=== PATIENT | female | born 1970 | race Caucasian/White ===

== ENCOUNTER 2016-11-22 21:24 | Emergency (ER) | payer OTHER ==
[2016-11-22 21:54] VITALS: BMI 20.6
[2016-11-22 21:58] VITALS: RESP 16; TEMP 98.7; O2SAT 99
--- NOTE | 2016-11-22 22:23 | ED PDOC ---
Arrival/HPI - General Chief Complaint: Headache Time Seen by Provider: 11/22/16 21:58 Historian: Patient - History of Present Illness Narrative History of Present Illness (Text): 11/22/16 22:17 46yo female present in ED for complaint of left sided occipital headache x 2days. Reports nausea. states she have history of same headache and was seen by a Neurologist. She did brain MRI last month September and states she was told that everything is fine. States she came to ED for a second opinion. She did not take any medication for her headache. Denies trauma, focal weakness, vomiting, aphasia, visual changes, fever, neck pain, any other complaint. Past Medical History - Provider Review Nursing Documentation Reviewed: Yes - Past History Past History: No Previous - Infectious Disease Hx of Infectious Diseases: None - Tetanus Immunization Tetanus Immunization: Unknown - Reproductive Menopause: Yes - Past Medical History Past Medical History: No Previous - Cardiac Hx Hypertension: Yes Other/Comment: elevated lipids - Neurological Hx Dizziness: Yes Hx Headaches: Yes - Endocrine/Metabolic Hx Hypothyroidism: Yes - Musculoskeletal/Rheumatological Hx Falls: No (passed out at home) - Gastrointestinal Hx Gastrointestinal Disorders: Yes (PYELONEPHRITIS) - Genitourinary/Gynecological Hx Genitourinary Disorders: Yes Hx Hematuria: Yes (MICROSCOPIC) Hx Reproductive Disorders: Yes Hx Urinary Tract Infection: Yes - Psychiatric Hx Psychophysiologic Disorder: Yes Hx Substance Use: No - Surgical History Hx Section: Yes Hx Thyroidectomy: Yes Other/Comment: laparoscopy, - Anesthesia Hx Anesthesia: Yes Hx Anesthesia Reactions: No Hx Malignant Hyperthermia: No - Suicidal Assessment Feels Threatened In Home Enviroment: No Family/Social History - Physician Review Nursing Documentation Reviewed: Yes Family/Social History: Unknown Family HX Smoking Status: Never Smoked Hx Alcohol Use: No Hx Substance Use: No Hx Substance Use Treatment: No Allergies/Home Meds Allergies/Adverse Reactions: Allergies No Known Allergies Allergy (Verified 11/22/16 21:53) Home Medications: Home Meds Medication Instructions Recorded Confirmed Naproxen [Naprosyn] 500 mg PO PRN PRN 11/22/16 11/22/16 Review of Systems - Physician Review All systems were reviewed & negative as marked: Yes - Review of Systems Constitutional: Normal Eyes: Normal ENT: Normal Respiratory: Normal Cardiovascular: Normal Gastrointestinal: Normal Genitourinary Female: Normal Musculoskeletal: Normal Skin: Normal Neurological: Headache Endocrine: Normal Hemo/Lymphatic: Normal Psychiatric: Normal Physical Exam Vital Signs Reviewed: Yes Vital Signs Temp Pulse Resp BP Pulse Ox 11/22/16 21:57 98.7 F 69 16 109/76 99 Temperature: Afebrile Blood Pressure: Normal Pulse: Regular Respiratory Rate: Normal Appearance: Positive for: Well-Appearing, Non-Toxic, Comfortable Pain Distress: None Mental Status: Positive for: Alert and Oriented X 3 - Systems Exam Head: Present: Atraumatic, Normocephalic Pupils: Present: PERRL Extroacular Muscles: Present: EOMI Conjunctiva: Present: Normal Mouth: Present: Moist Mucous Membranes Neck: Present: Normal Range of Motion Respiratory/Chest: Present: Clear to Auscultation, Good Air Exchange. No: Respiratory Distress, Accessory Muscle Use Cardiovascular: Present: Regular Rate and Rhythm, Normal S1, S2. No: Murmurs Abdomen: Present: Normal Bowel Sounds. No: Tenderness, Distention, Peritoneal Signs Back: Present: Normal Inspection Upper Extremity: Present: Normal Inspection. No: Cyanosis, Edema Lower Extremity: Present: Normal Inspection. No: Edema Neurological: Present: GCS=15, CN II-XII Intact, Speech Normal, Motor Func Grossly Intact, Normal Sensory Function, Normal Cerebellar Funct, Memory Normal , Normal 2Pt Descrimination, Other (No focal neurological deficit) Skin: Present: Warm, Dry, Normal Color. No: Rashes Psychiatric: Present: Alert, Oriented x 3, Normal Insight, Normal Concentration Medical Decision Making ED Course and Treatment: 11/23/16 00:48 Pt remained neurological intact in ED. Her MRI from last month was reviewed and it was negative. She states he headache improved in ED with medication. She was DC home with a rx of Fioricet. Referred to her PMD. TRT ED for any new or worsening symptoms. - Medication Orders Current Medication Orders: Discontinued Medications Ketorolac Tromethamine (Toradol) 60 mg IM STAT STA Stop: 11/22/16 22:09 Last Admin: 11/22/16 23:12 Dose: 60 mg Metoclopramide HCl (Reglan) 10 mg PO STAT STA Stop: 11/22/16 22:09 Last Admin: 11/22/16 23:12 Dose: 10 mg Disposition/Present on Arrival - Present on Arrival Any Indicators Present on Arrival: No History of DVT/PE: No History of Uncontrolled Diabetes: No Urinary Catheter: No History of Decub. Ulcer: No History Surgical Site Infection Following: None - Disposition Have Diagnosis and Disposition been Completed?: Yes Diagnosis: Headache Disposition: HOME/ ROUTINE Disposition Time: 23:40 Patient Plan: Discharge Patient Problems: Current Active Problems Problem Status Onset Headache Acute Condition: STABLE Discharge Instructions (ExitCare): Acute Headache (ED) Additional Instructions: Follow up with your Doctor Return to ED for any new or worsening symptoms Prescriptions: Acetaminophen/Butalbital/Caf [Fioricet] 1 tab PO Q6 #10 tab Referrals: [facility] [place] [Outside] - Follow up with primary
[2016-11-23 01:23] VITALS: BP 106/71; PULSE 66
== END 2016-11-22 23:46 | disposition home or self-care (01) ==
LOC: ED 21:24
DX: R51 Headache (principal); I10 Essential (primary) hypertension
CPT/HCPCS: 96372; 99285; J1885

== ENCOUNTER 2017-02-16 11:29 | Emergency (ER) | payer OTHER ==
[2017-02-16 12:13] VITALS: BP 116/71; PULSE 65; RESP 17; TEMP 98.2; O2SAT 99; BMI 21.0
[2017-02-16] MEDS ORDERED: Naproxen 550 mg Tab PO STA (12:14)
--- NOTE | 2017-02-16 12:54 | RAD ---
PROCEDURE: Radiographs of the right elbow. HISTORY: pain COMPARISON: No prior. FINDINGS: BONES: Normal. No fracture. JOINTS: Normal. No osteoarthritis. SOFT TISSUES: Normal. JOINT EFFUSION: None. OTHER FINDINGS: None. IMPRESSION: Unremarkable radiographs of the right elbow.
--- NOTE | 2017-02-16 12:58 | ED PDOC ---
Arrival/HPI - General Chief Complaint: Trauma Time Seen by Provider: 02/16/17 11:42 Historian: Patient - History of Present Illness Narrative History of Present Illness (Text): 02/16/17 13:22 46 yo R handed F c/o atraumatic R elbow pain x several weeks. States that she has seen her pmd and her pain management doctor regarding her symptoms, she has been taking NSAIDs with mild relief, however the pain continues, states that she was also given an injection at the joint by her pain management doctor with no improvement. States that she works 2 different jobs and is doing a lot of repetitive movements at both jobs. Denies any injury, fever, chills, numbness, decrease in ROM, other joint pain. Pt has no other complaints. PMD [place] Past Medical History - Provider Review Nursing Documentation Reviewed: Yes - Past History Past History: No Previous - Infectious Disease Hx of Infectious Diseases: None - Tetanus Immunization Tetanus Immunization: Unknown - Past Medical History Past Medical History: No Previous - Cardiac Hx Hypertension: Yes Other/Comment: elevated lipids - Neurological Hx Dizziness: Yes Hx Headaches: Yes - Endocrine/Metabolic Hx Hypothyroidism: Yes - Musculoskeletal/Rheumatological Hx Falls: No (passed out at home) - Gastrointestinal Hx Gastrointestinal Disorders: Yes (PYELONEPHRITIS) - Genitourinary/Gynecological Hx Genitourinary Disorders: Yes Hx Hematuria: Yes (MICROSCOPIC) Hx Reproductive Disorders: Yes Hx Urinary Tract Infection: Yes - Psychiatric Hx Psychophysiologic Disorder: Yes Hx Substance Use: No - Surgical History Hx Section: Yes Hx Thyroidectomy: Yes Other/Comment: laparoscopy, - Anesthesia Hx Anesthesia: Yes Hx Anesthesia Reactions: No Hx Malignant Hyperthermia: No - Suicidal Assessment Feels Threatened In Home Enviroment: No Family/Social History - Physician Review Nursing Documentation Reviewed: Yes Family/Social History: No Known Family HX Smoking Status: Never Smoked Hx Alcohol Use: No Hx Substance Use: No Hx Substance Use Treatment: No Allergies/Home Meds Allergies/Adverse Reactions: Allergies No Known Allergies Allergy (Verified 11/22/16 21:53) Home Medications: Home Meds Medication Instructions Recorded Confirmed Naproxen [Naprosyn] 500 mg PO PRN PRN 11/22/16 02/16/17 Ibuprofen [Motrin] 600 mg PO PRN PRN 02/16/17 02/16/17 Simvastatin [Simvastatin] 10 mg PO DAILY 02/16/17 02/16/17 Review of Systems - Review of Systems Constitutional: Normal. absent: Fatigue, Weight Change, Fevers Musculoskeletal: Normal, Arthralgias. absent: Back Pain, Neck Pain Skin: Normal. absent: Rash, Pruritis, Skin Lesions Physical Exam Vital Signs Reviewed: Yes Vital Signs Temp Pulse Resp BP Pulse Ox 02/16/17 12:04 98.2 F 65 17 116/71 99 Temperature: Afebrile Blood Pressure: Normal Pulse: Regular Respiratory Rate: Normal Appearance: Positive for: Well-Appearing, Non-Toxic, Comfortable Pain Distress: Mild Mental Status: Positive for: Alert and Oriented X 3 - Systems Exam Upper Extremity: Present: Normal Inspection, Normal ROM, NORMAL PULSES, Tenderness (TTP to the lateral epicondyle of the R elbow), Neurovascularly Intact, Capillary Refill < 2s, Norm 2-Pt Discrimination. No: Cyanosis, Edema, Swelling, Erythema, Temperature Abnormalties, Deformity Neurological: Present: GCS=15, CN II-XII Intact, Motor Func Grossly Intact, Normal Sensory Function Skin: Present: Warm, Dry, Normal Color. No: Rashes Medical Decision Making ED Course and Treatment: 02/16/17 12:56 46 yo F c/o R elbow pain x several weeks. Based on history and exam to consider tendonitis, sprain, likely tennis elbow. Plan : - XR R elbow - Naprosyn PO XR R elbow : no fracture, no deformity, as read by PA. XR results d/w the pt in great detail. Pt advised to likely diagnosis of tennis elbow and advised to rest her elbow, given work excuse for the next 2 days. Pt advised to continue taking NSAIDs for pain. Advised to f/u with her pmd and with ortho referral provided for further evaluation. Otherwise to return to the ER at any time for any new or worsening symptoms. - RAD Interpretation Radiology Orders: 02/16/17 12:14 ELBOW RIGHT 3 VIEWS ROUTINE [RAD] Stat - Medication Orders Current Medication Orders: Discontinued Medications Naproxen (Anaprox Ds) 550 mg PO ONCE STA Stop: 02/16/17 12:15 Last Admin: 02/16/17 13:10 Dose: 550 mg - PA / [employer] / Resident Statement MD/DO has reviewed & agrees with the documentation as recorded. Disposition/Present on Arrival - Present on Arrival Any Indicators Present on Arrival: No History of DVT/PE: No History of Uncontrolled Diabetes: No Urinary Catheter: No History of Decub. Ulcer: No History Surgical Site Infection Following: None - Disposition Have Diagnosis and Disposition been Completed?: Yes Diagnosis: Tennis elbow Disposition: HOME/ ROUTINE Disposition Time: 12:30 Patient Plan: Discharge Patient Problems: Current Active Problems Problem Status Onset Tennis elbow Acute Condition: GOOD Discharge Instructions (ExitCare): Tennis Elbow (ED) Print Language: AMHARIC Additional Instructions: Follow up with pmd and with orthopedic referral provided, continue taking NSAIDs for pain. Return to the ER at any time for any new or worsening symptoms. Referrals: PCP,NO [Primary Care Provider] - Follow up with primary Dwayne Pressley MD [Staff Provider] - Follow up with primary Forms: WORK NOTE
== END 2017-02-16 13:49 | disposition home or self-care (01) ==
LOC: ED 11:29
DX: M77.11 Lateral epicondylitis, right elbow (principal)

== ENCOUNTER 2017-03-03 12:04 | Observation (INO) | payer OTHER ==
--- NOTE | 2017-03-03 12:23 | ED PDOC ---
Arrival/HPI - General Chief Complaint: Chest Pain Time Seen by Provider: 03/03/17 12:05 Historian: Patient - History of Present Illness Narrative History of Present Illness (Text): 03/03/17 12:23 A 46 year old female, whose past medical history includes hyperlipidemia, presents to emergency department complaining of worsening midsternal chest pain since this morning. Patient describes her pain as a sharp pressure sensation. She states the pain is worse on exertion and when taking deep breaths. Patient denies any fever, chills, nausea, vomiting, diarrhea, abdominal pain, shortness of breath, cough, runny nose, headache, dizziness, or any other complaints. Denies history of DVT or PE. PMD: None Time/Duration: Other (this morning) Symptom Course: Unchanged Quality: Other (Sharp) Context: Home Past Medical History - Provider Review Nursing Documentation Reviewed: Yes - Past History Past History: No Previous - Infectious Disease Hx of Infectious Diseases: None - Tetanus Immunization Tetanus Immunization: Unknown - Past Medical History Past Medical History: No Previous - Cardiac Hx Hypertension: Yes Other/Comment: elevated lipids - Neurological Hx Dizziness: Yes Hx Headaches: Yes - Endocrine/Metabolic Hx Hypothyroidism: Yes - Musculoskeletal/Rheumatological Hx Falls: No (passed out at home) - Gastrointestinal Hx Gastrointestinal Disorders: Yes (PYELONEPHRITIS) - Genitourinary/Gynecological Hx Genitourinary Disorders: Yes Hx Hematuria: Yes (MICROSCOPIC) Hx Reproductive Disorders: Yes Hx Urinary Tract Infection: Yes - Psychiatric Hx Psychophysiologic Disorder: Yes Hx Substance Use: No - Surgical History Hx Section: Yes Hx Thyroidectomy: Yes Other/Comment: laparoscopy,. Ovarian Cyst removal,. Tummy Tuck. Breast lift. - Anesthesia Hx Anesthesia: Yes Hx Anesthesia Reactions: No Hx Malignant Hyperthermia: No - Suicidal Assessment Feels Threatened In Home Enviroment: No Family/Social History - Physician Review Nursing Documentation Reviewed: Yes Family/Social History: Hypertension Smoking Status: Never Smoked Hx Alcohol Use: No Hx Substance Use: No Hx Substance Use Treatment: No Allergies/Home Meds Allergies/Adverse Reactions: Allergies No Known Allergies Allergy (Verified 03/03/17 12:11) Home Medications: Home Meds Medication Instructions Recorded Confirmed Simvastatin [Simvastatin] 10 mg PO DAILY 02/16/17 03/03/17 Review of Systems - Physician Review All systems were reviewed & negative as marked: Yes - Review of Systems Constitutional: absent: Fevers, Night Sweats ENT: absent: Rhinorrhea Respiratory: absent: SOB, Cough Cardiovascular: Chest Pain Gastrointestinal: absent: Abdominal Pain, Diarrhea, Nausea, Vomiting Neurological: absent: Headache, Dizziness Physical Exam Vital Signs Reviewed: Yes Vital Signs Temp Pulse Resp BP Pulse Ox 03/03/17 12:15 97.8 F 60 20 117/76 100 Temperature: Afebrile Blood Pressure: Normal Pulse: Regular Respiratory Rate: Normal Appearance: Positive for: Well-Appearing Pain Distress: None Mental Status: Positive for: Alert and Oriented X 3 - Systems Exam Head: Present: Atraumatic, Normocephalic Pupils: Present: PERRL Extroacular Muscles: Present: EOMI Conjunctiva: Present: Normal Mouth: Present: Moist Mucous Membranes Neck: Present: Normal Range of Motion Respiratory/Chest: Present: Clear to Auscultation, Good Air Exchange, Tender to Palpation (Diffuse chest wall tenderness to palpation). No: Respiratory Distress, Accessory Muscle Use Cardiovascular: Present: Regular Rate and Rhythm, Normal S1, S2. No: Murmurs Abdomen: Present: Normal Bowel Sounds. No: Tenderness, Distention, Peritoneal Signs Back: Present: Normal Inspection Upper Extremity: Present: Normal Inspection. No: Cyanosis, Edema Lower Extremity: Present: Normal Inspection. No: Edema Neurological: Present: GCS=15, CN II-XII Intact, Speech Normal Skin: Present: Warm, Dry, Normal Color. No: Rashes Psychiatric: Present: Alert, Oriented x 3, Normal Insight, Normal Concentration Medical Decision Making ED Course and Treatment: 03/03/17 12:23 Impression: 46 year old female who's present complains of chest pain located on the middle of her chest this morning. Differential Diagnosis included but are not limited to: Costochondritis vs. Pulmonary Embolism vs. PNA vs. Pneumothorax Plan: --aspirin -- Chest xray -- EKG -- Labs -- Reassess and disposition Progress Notes: EKG shows NSR at [address]-segment elevations, normal intervals. Interpreted by me. Report Date : 03/03/2017 14:02:47 Procedure: Chest X-ray Dictator : Umair Rosales MD IMPRESSION: No active disease. 03/03/17 14:33 Trop x 1 negative. D-dimer WNL. On re-evaluation, patient complaining of persistent chest pain. Due to risk factors of hyperlipidemia and persistent pain will transfer to telemetry observation. Case discussed with Dr. Alnoso, covering for Dr. Thrasher, who requests to admit patient to the hospitalist's service. Hospitalist paged. Awaiting call back. 03/03/17 15:[address] Dewitt who accepts patient to her service. - Lab Interpretations Lab Results: 03/03/17 12:45 03/03/17 12:45 Lab Results 03/03/17 12:45: Sodium 140, Potassium 3.7, Chloride 101, Carbon Dioxide 27, Anion Gap 16, BUN 13, Creatinine 0.6, Est GFR ( Amer) > 60, Est GFR (Non- Af Amer) > 60, Random Glucose 82, Calcium 9.0, Total Bilirubin 0.3, AST 27, ALT 29, Alkaline Phosphatase 77, Total Creatine Kinase 121, Troponin I < 0.01 D, Total Protein 7.7, Albumin 4.4, Globulin 3.3, Albumin/Globulin Ratio 1.3 03/03/17 12:45: D-Dimer, Quantitative 0.19 03/03/17 12:45: WBC 5.5, RBC 4.06, Hgb 11.8 L, Hct 34.5 L, MCV 85.0, MCH 29.1, MCHC 34.2, RDW 13.0, Plt Count 232, MPV 10.6, Gran % 42.1 L, Lymph % (Auto) 38.2 H, [place] % (Auto) 11.0 H, Eos % (Auto) 8.2 H, Baso % (Auto) 0.5, Gran # 2.30 , Lymph # 2.1, La[place] # 0.6, Eos # 0.5, Baso # 0.03 I have reviewed the lab results: Yes - RAD Interpretation Radiology Orders: 03/03/17 12:27 CHEST PORTABLE [RAD] Stat - Medication Orders Current Medication Orders: Discontinued Medications Al Hydrox/Mg Hydrox/Simethicone (Maalox Plus 30 Ml) 30 ml PO STAT STA Stop: 03/03/17 14:30 Last Admin: 03/03/17 14:49 Dose: 30 ml Aspirin (Aspirin Chewable) 324 mg PO STAT STA Stop: 03/03/17 13:16 Last Admin: 03/03/17 13:25 Dose: 324 mg Famotidine (Pepcid) 20 mg IVP STAT STA Stop: 03/03/17 14:30 Last Admin: 03/03/17 14:49 Dose: 20 mg Ketorolac Tromethamine (Toradol) 30 mg IVP STAT STA Stop: 03/03/17 14:30 Last Admin: 03/03/17 14:49 Dose: 30 mg - Scribe Statement The provider has reviewed the documentation as recorded by the Bita Finney training with Zakia Godinez Provider Scribe Attestation: All medical record entries made by the Bita were at my direction and personally dictated by me. I have reviewed the chart and agree that the record accurately reflects my personal performance of the history, physical exam, medical decision making, and the department course for this patient. I have also personally directed, reviewed, and agree with the discharge instructions and disposition. Disposition/Present on Arrival - Present on Arrival Any Indicators Present on Arrival: No History of DVT/PE: No History of Uncontrolled Diabetes: No Urinary Catheter: No History of Decub. Ulcer: No History Surgical Site Infection Following: None - Disposition Have Diagnosis and Disposition been Completed?: Yes Diagnosis: Chest pain Disposition: HOSPITALIZED Disposition Time: 15:14 Patient Plan: Observation Condition: FAIR
[2017-03-03 12:53] LABS: BASO # 0.03 K/mm3 (0.0-2.0); BASO % 0.5 % (0.0-3.0); EOS # 0.5 (0.0-0.7); EOS % 8.2 % (1.5-5.0); GRAN % 42.1 % (50.0-68.0); HEMOGLOBIN 11.8 g/dL (12.0-16.0); LYMPH # 2.1 (1.2-3.4); LYMPH % 38.2 % (22.0-35.0); MEAN CORPUSCULAR HEMOGLOBIN 29.1 pg (25.0-35.0); MEAN CORPUSCULAR HGB CONC 34.2 g/dl (31.0-37.0); MEAN PLATELET VOLUME 10.6 fl (7.0-11.0); MONO # 0.6 (0.1-0.6); PLATELET COUNT 232 10^3/uL (120.0-450.0); RBC 4.06 10^6/uL (3.5-6.1); WHITE BLOOD COUNT 5.5 10^3/ul (4.5-11.0)
[2017-03-03 13:07] LABS: ALB/GLOB RATIO 1.3 (1.1-1.8); ALBUMIN 4.4 g/dL (3.0-4.8); ALT/SGPT 29 U/L (7-56); AST/SGOT 27 U/L (15-39); BLOOD UREA NITROGEN 13 mg/dL (7-21); GFR AFRICAN-AMERICAN > 60; GFR NON-AFRICAN AMERICAN > 60
[2017-03-03 13:18] LABS: TROPONIN I < 0.01 ng/mL
--- NOTE | 2017-03-03 14:04 | RAD ---
HISTORY: chest pain COMPARISON: 02/26/2014 FINDINGS: LUNGS: No active pulmonary disease. PLEURA: No significant pleural effusion identified, no pneumothorax apparent. CARDIOVASCULAR: Normal. OSSEOUS STRUCTURES: No significant abnormalities. VISUALIZED UPPER ABDOMEN: Normal. OTHER FINDINGS: None. IMPRESSION: No active disease.
[2017-03-03] MEDS ORDERED: Alum-Mag Hydrox-Simethicone Susp (30 mL) PO STA (14:29)
--- NOTE | 2017-03-03 15:57 | CP.PCM.HP ---
<KendellJared - Last Filed: 03/03/17 17:29> History of Present Illness - History of Present Illness History of Present Illness: Jared Rdz DO, PGY-1, Hospitalist Service Dr. Bourne 46 year old female with a past medical history of hyperlipidemia who presents with sharp chest pain, located along the sternum and pectoralis region, reproducible with palpation and adduction of bilateral upper extremities, non- radiating, without association with dyspnea, numbness, nausea, vomiting, diaphoresis. 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 She went to work doing her usual weekday job at [employer] yesterday, and last night kept waking up off because she could not find a comfortable position resting her arms. Eventually, she states she hugged a pillow and went to sleep. She does not have a family history of heart disease. PMH: Hyperlipidemia. PSH: 1999 partial thyroidectomy, C- section(s), tummy tuck, breast lift, ovarian cyst removal Allergies: NKDA Social History: non-smoker, drinks alcohol on gnosticist occasions, works at [employer], accompanied by , has 2 children Medications: Simvistatin 10 mg Present on Admission - Present on Admission Any Indicators Present on Admission: No Review of Systems - Constitutional Constitutional: absent: Anorexia, Chills, Excessive Sweating - EENT Eyes: absent: Blind Spots, Blurred Vision, Change in Vision, Other Visual Disturbances Ears: absent: Decreased Hearing, Ear Discharge, Disequilibrium Nose/Mouth/Throat: absent: Nasal Congestion, Nasal Trauma, Nose Pain, Bleeding Gums - Cardiovascular Cardiovascular: Chest Pain with Activity. absent: Diaphoresis, Dyspnea, Leg Edema, Palpitations - Respiratory Respiratory: Pain on Inspiration. absent: Dyspnea, Dyspnea on Exertion, Pain with Coughing - Gastrointestinal Gastrointestinal: absent: Change in Stool Character, Diarrhea, Dyspepsia, Dysphagia - Genitourinary Genitourinary: absent: Flank Pain, Urinary Frequency, Urinary Hesitance - Menstruation Menstruation: Currently Menstual - Musculoskeletal Musculoskeletal: absent: Back Pain, Limited Range of Motion, Loss of Height - Integumentary Integumentary: absent: Bleeding Lesions, Change in Pigmentation, Hirsutism - Neurological Neurological: absent: Abnormal Hearing, Numbness, Lack of Coordination, Radicular Pain - Psychiatric Psychiatric: absent: Abnormal Sleep Pattern, Behavioral Changes, Hopelessness, Mood Swings - Endocrine Endocrine: absent: Fatigue, Increase in Ring/Shoe/Hat Size, Palpitations, Polyuria - Hematologic/Lymphatic Hematologic: absent: Easy Bleeding, Easy Bruising Past Patient History - Infectious Disease Hx of Infectious Diseases: None - Tetanus Immunizations Tetanus Immunization: Unknown - Past Social History Smoking Status: Never Smoked Alcohol: Occasional Drugs: Denies - CARDIAC Hx Hypertension: Yes Other/Comment: elevated lipids - NEUROLOGICAL Hx Dizziness: Yes - ENDOCRINE/METABOLIC Hx Hypothyroidism: Yes - MUSCULOSKELETAL/RHEUMATOLOGICAL Hx Falls: No (passed out at home) - GASTROINTESTINAL Hx Gastrointestinal Disorders: Yes (PYELONEPHRITIS) - GENITOURINARY/GYNECOLOGICAL Hx Genitourinary Disorders: Yes Hx Hematuria: Yes (MICROSCOPIC) Hx Reproductive Disorders: Yes Hx Urinary Tract Infection: Yes - PSYCHIATRIC Hx Psychophysiologic Disorder: Yes Hx Substance Use: No - SURGICAL HISTORY Hx Section: Yes Hx Thyroidectomy: Yes Other/Comment: laparoscopy,. Ovarian Cyst removal,. Tummy Tuck. Breast lift. - ANESTHESIA Hx Anesthesia: Yes Hx Anesthesia Reactions: No Hx Malignant Hyperthermia: No Meds Allergies/Adverse Reactions: Allergies Allergy/AdvReac Type Severity Reaction Status Date / Time No Known Allergies Allergy Verified 03/03/17 12:11 Physical Exam - Constitutional Appears: Non-toxic, No Acute Distress - Head Exam Head Exam: ATRAUMATIC, NORMOCEPHALIC - Eye Exam Eye Exam: EOMI, Normal appearance, PERRL - ENT Exam ENT Exam: Mucous Membranes Moist, Normal Oropharynx - Neck Exam Neck exam: Positive for: Normal Inspection. Negative for: Thyromegaly - Respiratory Exam Respiratory Exam: Chest Wall Tenderness (pectoralis region and sternum is tender ), Clear to Auscultation Bilateral, NORMAL BREATHING PATTERN - Cardiovascular Exam Cardiovascular Exam: RRR, +S1, +S2 - GI/Abdominal Exam GI & Abdominal Exam: Normal Bowel Sounds, Soft. absent: Guarding, Hernia, Rigid - Rectal Exam Rectal Exam: Deferred - Extremities Exam Extremities exam: Positive for: normal capillary refill, normal inspection. Negative for: joint swelling, pedal edema - Back Exam Back exam: NORMAL INSPECTION. absent: CVA tenderness (L), CVA tenderness (R) - Neurological Exam Neurological exam: Alert, CN II-XII Intact, Oriented x3 - Psychiatric Exam Psychiatric exam: Normal Affect, Normal Mood - Skin Skin Exam: Dry, Intact, Normal Color, Warm Results - Vital Signs Recent Vital Signs: Last Vital Signs Temp 97.8 F 03/03/17 12:15 Pulse 60 03/03/17 12:15 Resp 20 03/03/17 12:15 BP 117/76 03/03/17 12:15 Pulse Ox 100 03/03/17 12:15 - Labs Result Diagrams: 03/03/17 12:45 03/03/17 12:45 - EKG Data EKG Interpreted by: Myself Rate: Normal - EKG Data When Compared to Previous EKG: No Significant Change Assessment & Plan - Assessment and Plan (Free Text) Assessment: 46 yo female with chest pain reproduced with upper extremity movement and palpation to the sternum and pectoralis muscles presents [place] [facility] [place] . Plan: 1) Chest pain, r/o ACS - Reproducible on palpation, likely costochondritis versus ACS given HLD history - Serial troponins, initial negative, will trend x2. - CXR negative - D-dimer negative - EKG showed no ST-T wave changes - Echocardiogram ordered -Urine drug screen ordered. - Chest pain improved with IV NSAID administered in the ER, will continue with Naprosyn 550 mg BID 2) Hyperlipidemia: Lipid panel pending Atorvastatin 10 mg Patient discussed with attending, Dr. Bourne - Date & Time Date: 03/03/17 Time: 17:29 Decision To Admit - Pt Status Changed To: Hospital Disposition Of: Observation - . Bed Request Type: Remote Telemetry <Fiorella Bourne - Last Filed: 03/03/17 20:54> Results - Vital Signs Recent Vital Signs: Last Vital Signs Temp 97.5 F L 03/03/17 16:00 Pulse 68 03/03/17 17:40 Resp 14 03/03/17 17:40 BP 109/73 03/03/17 17:40 Pulse Ox 100 03/03/17 17:40 - Labs Result Diagrams: 03/03/17 12:45 03/03/17 12:45 Labs: Laboratory Results - last 24 hr 03/03/17 03/03/17 16:30 18:51 Troponin I < 0.01 Urine Opiates Screen Negative Urine Methadone Screen Negative Ur Barbiturates Screen Negative Ur Phencyclidine Scrn Negative Ur Amphetamines Screen Negative U Benzodiazepines Scrn Negative U Oth Cocaine Metabols Negative U Cannabinoids Screen Negative Attending/Attestation - Attestation I have personally seen and examined this patient.: Yes I have fully participated in the care of the patient.: Yes I have reviewed all pertinent clinical information: Yes Notes (Text): 03/03/17 20:51 46 year old female with past medical history of dyslipidemia who presented with complaint chest pain which is reproducible. Serial cardiac enzymes and echocardiogram are ordered. Trial of naprosyn. Lipid panel ordered for AM. Continue with statin. Fiorella Bourne MD Hospitalist.
--- NOTE | 2017-03-03 16:22 | CARD ---
APPROVED REPORT EKG Measurement Heart [id number] <Conclusion> Normal sinus rhythm Low voltage QRS Early repolarization Borderline ECG
[2017-03-03 16:55] LABS: BARBITURATES, UR NEGATIVE (NEGATIVE); BENZODIAZEPINES, UR NEGATIVE (NEGATIVE); OPIATES, UR NEGATIVE (NEGATIVE); PHENCYCLIDINE, UR NEGATIVE (NEGATIVE)
[2017-03-03] MEDS: Naproxen 550 mg Tab PO SCH (17:39)
[2017-03-03 22:43] VITALS: BMI 21.2
[2017-03-03] MEDS ORDERED: Pneumococcal 23-Valent Vaccine IM ONE (22:43)
[2017-03-04 06:34] LABS: HEMOGLOBIN 11.4 g/dL (12.0-16.0); MEAN CORPUSCULAR HEMOGLOBIN 29.1 pg (25.0-35.0); MEAN CORPUSCULAR HGB CONC 33.8 g/dl (31.0-37.0); MEAN PLATELET VOLUME 11.2 fl (7.0-11.0); PLATELET COUNT 220 10^3/uL (120.0-450.0); RBC 3.92 10^6/uL (3.5-6.1); RED CELL DISTRIBUTION WIDTH 13.4 % (11.5-14.5); WHITE BLOOD COUNT 5.3 10^3/ul (4.5-11.0)
[2017-03-04 06:42] LABS: BLOOD UREA NITROGEN 16 mg/dL (7-21); CALCIUM 8.7 mg/dL (8.4-10.5); GFR AFRICAN-AMERICAN > 60; GFR NON-AFRICAN AMERICAN > 60; HDL CHOLESTEROL 44 mg/dL (29-60)
[2017-03-04 06:53] LABS: LDL CHOLESTEROL 164 mg/dL (0-129)
[2017-03-04 08:12] VITALS: RESP 18
[2017-03-04 08:46] LABS: ATYPICAL LYMPHOCYTE 7 % (0.0-0.0); EOSINOPHIL 13 % (0.0-3.0); LYMPHOCYTE 48 % (22.0-35.0); MONOCYTE 3 % (1.0-6.0); NEUTROPHIL 29 % (50.0-70.0)
[2017-03-04 08:47] LABS: PLATELET ESTIMATE NORMAL (NORMAL)
[2017-03-04] MEDS: Naproxen 550 mg Tab PO SCH ×2 (09:16→17:38)
[2017-03-04 16:20] VITALS: BP 102/64; PULSE 62; TEMP 98; O2SAT 98
--- NOTE | 2017-03-04 18:41 | CP.PCM.DIS ---
<Kendell,Nevillemekhi - Last Filed: 03/04/17 21:05> Provider - Provider Date of Admission: 03/03/17 14:31 Attending physician: Sherita Pruett MD Primary care physician: [facility] [place] in [facility]. Consults: Cardiology: Dr. Bell Time Spent in preparation of Discharge (in minutes): 37 Hospital Course - Lab Results Lab Results: Most Recent Lab Values WBC 5.3 10^3/ul (4.5-11.0) 03/04/17 05:15 RBC 3.92 10^6/uL (3.5-6.1) 03/04/17 05:15 Hgb 11.4 g/dL (12.0-16.0) L 03/04/17 05:15 Hct 33.7 % (36.0-48.0) L 03/04/17 05:15 MCV 86.0 fl (80.0-105.0) 03/04/17 05:15 MCH 29.1 pg (25.0-35.0) 03/04/17 05:15 MCHC 33.8 g/dl (31.0-37.0) 03/04/17 05:15 RDW 13.4 % (11.5-14.5) 03/04/17 05:15 Plt Count 220 10^3/uL (120.0-450.0) 03/04/17 05:15 MPV 11.2 fl (7.0-11.0) H 03/04/17 05:15 Gran % 42.1 % (50.0-68.0) L 03/03/17 12:45 Lymph % (Auto) 38.2 % (22.0-35.0) H 03/03/17 12:45 Hickman % (Auto) 11.0 % (1.0-6.0) H 03/03/17 12:45 Eos % (Auto) 8.2 % (1.5-5.0) H 03/03/17 12:45 Baso % (Auto) 0.5 % (0.0-3.0) 03/03/17 12:45 Gran # 2.30 (1.4-6.5) 03/03/17 12:45 Lymph # 2.1 (1.2-3.4) 03/03/17 12:45 Hickman # 0.6 (0.1-0.6) 03/03/17 12:45 Eos # 0.5 (0.0-0.7) 03/03/17 12:45 Baso # 0.03 K/mm3 (0.0-2.0) 03/03/17 12:45 Neutrophils % (Manual) 29 % (50.0-70.0) L 03/04/17 05:15 Lymphocytes % (Manual) 48 % (22.0-35.0) H 03/04/17 05:15 Atypical Lymphs % 7 % (0.0-0.0) H 03/04/17 05:15 Monocytes % (Manual) 3 % (1.0-6.0) 03/04/17 05:15 Eosinophils % (Manual) 13 % (0.0-3.0) H 03/04/17 05:15 Platelet Evaluation Normal (NORMAL) 03/04/17 05:15 ESR 4 mm/hr (0.0-20.0) 03/04/17 05:15 D-Dimer, Quantitative 0.19 mg/L FEU (0-0.50) 03/03/17 12:45 Sodium 139 mmol/L (132-148) 03/04/17 05:15 Potassium 4.3 mmol/L (3.6-5.0) 03/04/17 05:15 Chloride 102 mmol/L (98-107) 03/04/17 05:15 Carbon Dioxide 28 mmol/L (21-33) 03/04/17 05:15 Anion Gap 13 (10-20) 03/04/17 05:15 BUN 16 mg/dL (7-21) 03/04/17 05:15 Creatinine 0.7 mg/dL (0.5-1.4) 03/04/17 05:15 Est GFR ( Amer) > 60 03/04/17 05:15 Est GFR (Non-Af Amer) > 60 03/04/17 05:15 Random Glucose 75 mg/dL (70-110) 03/04/17 05:15 Calcium 8.7 mg/dL (8.4-10.5) 03/04/17 05:15 Total Bilirubin 0.3 mg/dL (0.2-1.3) 03/03/17 12:45 AST 27 U/L (15-39) 03/03/17 12:45 ALT 29 U/L (7-56) 03/03/17 12:45 Alkaline Phosphatase 77 U/L (38-133) 03/03/17 12:45 Total Creatine Kinase 121 U/L (35-230) 03/03/17 12:45 Troponin I < 0.01 ng/mL 03/03/17 23:45 Total Protein 7.7 g/dL (5.8-8.3) 03/03/17 12:45 Albumin 4.4 g/dL (3.0-4.8) 03/03/17 12:45 Globulin 3.3 gm/dL 03/03/17 12:45 Albumin/Globulin Ratio 1.3 (1.1-1.8) 03/03/17 12:45 Triglycerides 111 mg/dL (35-160) 03/04/17 05:15 Cholesterol 226 mg/dL (130-200) H 03/04/17 05:15 LDL Cholesterol Direct 164 mg/dL (0-129) H 03/04/17 05:15 HDL Cholesterol 44 mg/dL (29-60) 03/04/17 05:15 Urine Opiates Screen Negative (NEGATIVE) 03/03/17 16:30 Urine Methadone Screen Negative (NEGATIVE) 03/03/17 16:30 Ur Barbiturates Screen Negative (NEGATIVE) 03/03/17 16:30 Ur Phencyclidine Scrn Negative (NEGATIVE) 03/03/17 16:30 Ur Amphetamines Screen Negative (NEGATIVE) 03/03/17 16:30 U Benzodiazepines Scrn Negative (NEGATIVE) 03/03/17 16:30 U Oth Cocaine Metabols Negative (NEGATIVE) 03/03/17 16:30 U Cannabinoids Screen Negative (NEGATIVE) 03/03/17 16:30 - Hospital Course Hospital Course: 46 year old female with a past medical history of hyperlipidemia who presents with sharp chest pain, located along the sternum and pectoralis region, reproducible adduction of bilateral upper extremities and palpation along the sternum, non-radiating, without association with dyspnea, numbness, nausea, vomiting, diaphoresis. 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 She went to work doing her usual weekday job at [employer] yesterday, and last night kept waking up off and on because she could not find a comfortable position resting her arms. Initial evaluation at the time of presentation including but not limited to EKG, serial troponins, D-dimer, CXR were negative for a cardiac source of the patient's pain. The patient's pain responded to NSAID, her lipid panel was taken also in the AM and showed elevated LDL and cholesterol. When asked if she actually takes her simvistatin, the patient said no due to concerns about side effects. The patient stayed a night in the hospital to undergo an echocardiogram in the AM. The preliminary read showed an LVEF of 62%. She was discharged with education and counseling on her risk of CAD , the benefit of statin therapy, and advised to follow up with her PMD to discuss the aforementioned. - Date & Time of H&P Date of H&P: 03/04/17 Time of H&P: 07:15 Discharge Exam - Head Exam Head Exam: ATRAUMATIC, NORMOCEPHALIC - Eye Exam Eye Exam: EOMI, Normal appearance, PERRL - ENT Exam ENT Exam: Mucous Membranes Moist, Normal Oropharynx - Neck Exam Neck exam: Normal Inspection - Respiratory Exam Respiratory Exam: Clear to PA & Lateral, NORMAL BREATHING PATTERN, UNREMARKABLE - Cardiovascular Exam Cardiovascular Exam: RRR, +S1, +S2 - GI/Abdominal Exam GI & Abdominal Exam: Normal Bowel Sounds, Unremarkable. absent: Firm, Guarding - Rectal Exam Rectal Exam: absent: Deferred - Back Exam Back exam: absent: CVA tenderness (L), CVA tenderness (R) - Neurological Exam Neurological exam: CN II-XII Intact, Normal Gait, Oriented x3 - Psychiatric Exam Psychiatric exam: Normal Affect, Normal Mood - Skin Skin Exam: Dry, Intact, Normal Color, Warm Discharge Plan - Follow Up Plan Condition: FAIR Disposition: HOME/ ROUTINE Patient education suggested?: Yes Instructions: Chest Pain (DC), Chest Pain (GEN) Additional Instructions: Follow up with Primary Medical Doctor within 1-2 weeks. Referrals: PCP,NO [Primary Care Provider] - <Sherita Pruett MD - Last Filed: 03/05/17 08:26> Provider - Provider Date of Admission: 03/03/17 14:31 Attending physician: Sherita Pruett MD Primary care physician: NO PRIMARY CARE PROVIDER Hospital Course - Lab Results Lab Results: Most Recent Lab Values WBC 5.3 10^3/ul (4.5-11.0) 03/04/17 05:15 RBC 3.92 10^6/uL (3.5-6.1) 03/04/17 05:15 Hgb 11.4 g/dL (12.0-16.0) L 03/04/17 05:15 Hct 33.7 % (36.0-48.0) L 03/04/17 05:15 MCV 86.0 fl (80.0-105.0) 03/04/17 05:15 MCH 29.1 pg (25.0-35.0) 03/04/17 05:15 MCHC 33.8 g/dl (31.0-37.0) 03/04/17 05:15 RDW 13.4 % (11.5-14.5) 03/04/17 05:15 Plt Count 220 10^3/uL (120.0-450.0) 03/04/17 05:15 MPV 11.2 fl (7.0-11.0) H 03/04/17 05:15 Gran % 42.1 % (50.0-68.0) L 03/03/17 12:45 Lymph % (Auto) 38.2 % (22.0-35.0) H 03/03/17 12:45 Hickman % (Auto) 11.0 % (1.0-6.0) H 03/03/17 12:45 Eos % (Auto) 8.2 % (1.5-5.0) H 03/03/17 12:45 Baso % (Auto) 0.5 % (0.0-3.0) 03/03/17 12:45 Gran # 2.30 (1.4-6.5) 03/03/17 12:45 Lymph # 2.1 (1.2-3.4) 03/03/17 12:45 Hickman # 0.6 (0.1-0.6) 03/03/17 12:45 Eos # 0.5 (0.0-0.7) 03/03/17 12:45 Baso # 0.03 K/mm3 (0.0-2.0) 03/03/17 12:45 Neutrophils % (Manual) 29 % (50.0-70.0) L 03/04/17 05:15 Lymphocytes % (Manual) 48 % (22.0-35.0) H 03/04/17 05:15 Atypical Lymphs % 7 % (0.0-0.0) H 03/04/17 05:15 Monocytes % (Manual) 3 % (1.0-6.0) 03/04/17 05:15 Eosinophils % (Manual) 13 % (0.0-3.0) H 03/04/17 05:15 Platelet Evaluation Normal (NORMAL) 03/04/17 05:15 ESR 4 mm/hr (0.0-20.0) 03/04/17 05:15 D-Dimer, Quantitative 0.19 mg/L FEU (0-0.50) 03/03/17 12:45 Sodium 139 mmol/L (132-148) 03/04/17 05:15 Potassium 4.3 mmol/L (3.6-5.0) 03/04/17 05:15 Chloride 102 mmol/L (98-107) 03/04/17 05:15 Carbon Dioxide 28 mmol/L (21-33) 03/04/17 05:15 Anion Gap 13 (10-20) 03/04/17 05:15 BUN 16 mg/dL (7-21) 03/04/17 05:15 Creatinine 0.7 mg/dL (0.5-1.4) 03/04/17 05:15 Est GFR ( Amer) > 60 03/04/17 05:15 Est GFR (Non-Af Amer) > 60 03/04/17 05:15 Random Glucose 75 mg/dL (70-110) 03/04/17 05:15 Calcium 8.7 mg/dL (8.4-10.5) 03/04/17 05:15 Total Bilirubin 0.3 mg/dL (0.2-1.3) 03/03/17 12:45 AST 27 U/L (15-39) 03/03/17 12:45 ALT 29 U/L (7-56) 03/03/17 12:45 Alkaline Phosphatase 77 U/L (38-133) 03/03/17 12:45 Total Creatine Kinase 121 U/L (35-230) 03/03/17 12:45 Troponin I < 0.01 ng/mL 03/03/17 23:45 Total Protein 7.7 g/dL (5.8-8.3) 03/03/17 12:45 Albumin 4.4 g/dL (3.0-4.8) 03/03/17 12:45 Globulin 3.3 gm/dL 03/03/17 12:45 Albumin/Globulin Ratio 1.3 (1.1-1.8) 03/03/17 12:45 Triglycerides 111 mg/dL (35-160) 03/04/17 05:15 Cholesterol 226 mg/dL (130-200) H 03/04/17 05:15 LDL Cholesterol Direct 164 mg/dL (0-129) H 03/04/17 05:15 HDL Cholesterol 44 mg/dL (29-60) 03/04/17 05:15 Urine Opiates Screen Negative (NEGATIVE) 03/03/17 16:30 Urine Methadone Screen Negative (NEGATIVE) 03/03/17 16:30 Ur Barbiturates Screen Negative (NEGATIVE) 03/03/17 16:30 Ur Phencyclidine Scrn Negative (NEGATIVE) 03/03/17 16:30 Ur Amphetamines Screen Negative (NEGATIVE) 03/03/17 16:30 U Benzodiazepines Scrn Negative (NEGATIVE) 03/03/17 16:30 U Oth Cocaine Metabols Negative (NEGATIVE) 03/03/17 16:30 U Cannabinoids Screen Negative (NEGATIVE) 03/03/17 16:30 Attending/Attestation - Attestation I have personally seen and examined this patient.: Yes I have fully participated in the care of the patient.: Yes I have reviewed all pertinent clinical information, including history, physical exam and plan: Yes Notes (Text): 03/05/17 08:20 Patient was seen and examined with medical record transcriber. Agreed with resident assessment and plan. 46 year old female with PMH of hyperlipidemia was admitted with atypical chest pain.Patient is found to have chest wall tenderness, EKG is negative for ischemic changes, serial troponins are normal.Patient 2D echo showed normal systolic function.Patient will be discharged home and will follow up with PCP . Patient is a low risk patient and will need out patient stress test to rule out stress induced ischemia. Management plan was discussed in detail with patient Education was provided.
--- NOTE | 2017-03-04 23:53 | CARD ---
APPROVED REPORT EXAM: Two-dimensional and M-mode echocardiogram with Doppler and color Doppler. INDICATION Chest Pain 2D DIMENSIONS Left Atrium (2D)3.0 (1.6-4.0cm)IVSd0.9 (0.7-1.1cm) LVDd3.1 (3.9-5.9cm)PWd0.9 (0.7-1.1cm) LVDs2.1 (2.5-4.0cm)FS (%) 32.2 % LVEF (%)61.9 (>50%) M-Mode DIMENSIONS Aortic Root2.10 (2.2-3.7cm)Aortic Cusp Exc.1.60 (1.5-2.0cm) Aortic Valve AoV Peak Xnkjofnp680.0cm/Marisa Peak GR.7mmHg Mitral Valve MV E Odngyjzg755.0cm/sMV A Feqybbdn16.8cm/sE/A ratio1.5 TDI E/Lateral E'0.0E/Medial E'0.0 Tricuspid Valve TR Peak Wedickfl254kb/sRAP [id number] Peak Gr.23mmHg [id number] LEFT VENTRICLE The left ventricle is normal size. There is normal left ventricular wall thickness. The left ventricular function is normal. The left ventricular ejection fraction is within the normal range. There is normal LV segmental wall motion. The left ventricular diastolic function is normal. RIGHT VENTRICLE The right ventricle is mildly dilated. There is normal right ventricular wall thickness. Systolic function is mildly reduced. ATRIA The left atrium size is normal. The right atrium size is normal. AORTIC VALVE The aortic valve is mildly thickened. No aortic regurgitation is present. MITRAL VALVE The mitral valve is mildly thickened. Mitral regurgitation is trace. TRICUSPID VALVE There is mild tricuspid regurgitation. GREAT VESSELS The aortic root is normal in size. The IVC is normal in size and collapses >50% with inspiration. <Conclusion> The left ventricle is normal size. There is normal left ventricular wall thickness. The left ventricular function is normal. The left ventricular ejection fraction is within the normal range. There is normal LV segmental wall motion. The left ventricular diastolic function is normal. The right ventricle is mildly dilated. RV Systolic function is mildly reduced.
== END 2017-03-04 19:06 | disposition home or self-care (01) ==
LOC: ED 12:04 → ERH 14:31 → 3RNO 17:46
PROVIDERS: ADMIT Internal Medicine; ATTEND Internal Medicine
DX: R07.89 Other chest pain (principal); E78.5 Hyperlipidemia, unspecified; I10 Essential (primary) hypertension
CPT/HCPCS: 36415; 71010; 80048; 80053; 80061; 80324; 80345; 80346; 80349; 80353; 80358; 80361; 82550; 83992; 84484; 85025; 85378; 85651; 93005; 93306; 96374; 96375; 99285; G0378; J1885

== ENCOUNTER 2017-09-30 22:58 | Emergency (ER) | payer OTHER ==
[2017-09-30 22:59] VITALS: BMI 21.2
--- NOTE | 2017-10-01 00:20 | ED PDOC ---
Arrival/HPI - General Chief Complaint: Back Pain Time Seen by Provider: 09/30/17 23:44 Historian: Patient - History of Present Illness Narrative History of Present Illness (Text): 10/01/17 00:20 Eleni Berkowitz is a 47 year old female, whose past medical history includes hypertension, who presents to the Emergency department complaining of back pain and neck pain. Patient states she slipped and fell backward on to her back while at home 1 week prior, but did not have pain intially. Patient states she developed mid-back pain and neck pain 3 days prior. Patient denies any headache , dizziness, fever, weakness/numbness/tingling in the extremities, decreased range of motion, nausea, vomiting, diarrhea, urinary symptoms, back pain, neck pain, or any other complaints. Symptom Onset: Gradual Symptom Course: Unchanged Activities at Onset: Light Context: Home Past Medical History - Provider Review Nursing Documentation Reviewed: Yes - Past History Past History: No Previous - Infectious Disease Hx of Infectious Diseases: None - Tetanus Immunization Tetanus Immunization: Unknown - Past Medical History Past Medical History: No Previous - Cardiac Hx Hypertension: (pt denies htn) - Pulmonary Hx Respiratory Disorders: No - Neurological Hx Neurological Disorder: Yes (headaches) - HEENT Hx HEENT Disorder: Yes (eyeglasses) Other/Comment: tympanoplasty - Renal Hx Renal Disorder: No Hx Pyelonephritis: (pt denies) - Endocrine/Metabolic Hx Hypothyroidism: Yes Other/Comment: partial thyroidectomy 04/2000 - Hematological/Oncological Hx Blood Disorders: No - Integumentary Hx Dermatological Disorder: No - Musculoskeletal/Rheumatological Hx Falls: Yes (passed out and fell in the past) - Gastrointestinal Hx Gastrointestinal Disorders: Yes - Genitourinary/Gynecological Hx Genitourinary Disorders: Yes (fibroids, ovarian cyst) Hx Hematuria: Yes (MICROSCOPIC) Hx Urinary Tract Infection: Yes Other/Comment: dysuria 2013, irregular periods x 1 yr - Psychiatric Hx Psychophysiologic Disorder: No Hx Substance Use: No - Surgical History Other/Comment: fallopian tube removal laparoscopic sx, ovarian cyst removal laparoscopic, tummy tuck breast lift, fibroids, c section - Anesthesia Hx Anesthesia: Yes Hx Anesthesia Reactions: No Hx Malignant Hyperthermia: No - Suicidal Assessment Feels Threatened In Home Enviroment: No Family/Social History - Physician Review Nursing Documentation Reviewed: Yes Family/Social History: Unknown Family HX Smoking Status: Never Smoked Hx Alcohol Use: No Hx Substance Use: No Hx Substance Use Treatment: No Allergies/Home Meds Allergies/Adverse Reactions: Allergies No Known Allergies Allergy (Verified 09/30/17 23:41) Home Medications: Home Meds Medication Instructions Recorded Confirmed Simvastatin 20 mg PO DAILY 02/16/17 09/30/17 Review of Systems - Physician Review All systems were reviewed & negative as marked: Yes - Review of Systems Constitutional: Normal. absent: Fevers Eyes: Normal ENT: Normal Respiratory: Normal. absent: SOB, Cough Cardiovascular: Normal. absent: Chest Pain Gastrointestinal: Normal. absent: Abdominal Pain, Diarrhea, Nausea, Vomiting Genitourinary Female: Normal. absent: Dysuria, Frequency, Hematuria, Urine Output Changes Musculoskeletal: Back Pain, Neck Pain Skin: Normal. absent: Rash Neurological: Normal. absent: Headache, Dizziness Endocrine: Normal Hemo/Lymphatic: Normal Psychiatric: Normal Physical Exam Vital Signs Reviewed: Yes Vital Signs Temp Pulse Resp BP Pulse Ox 10/01/17 03:08 98.2 F 80 17 123/84 98 09/30/17 23:42 98.0 F 78 18 116/64 100 Temperature: Afebrile Blood Pressure: Normal Pulse: Regular Respiratory Rate: Normal Appearance: Positive for: Well-Appearing, Non-Toxic, Comfortable Pain Distress: None Mental Status: Positive for: Alert and Oriented X 3 - Systems Exam Head: Present: Atraumatic, Normocephalic Pupils: Present: PERRL Extroacular Muscles: Present: EOMI Conjunctiva: Present: Normal Mouth: Present: Moist Mucous Membranes Neck: Present: Paraspinal Tenderness (Paracervical tenderness/spasm). No: Meningeal Signs, MIDLINE TENDERNESS Respiratory/Chest: Present: Clear to Auscultation, Good Air Exchange. No: Respiratory Distress, Accessory Muscle Use Cardiovascular: Present: Regular Rate and Rhythm, Normal S1, S2. No: Murmurs Abdomen: Present: Normal Bowel Sounds. No: Tenderness, Distention, Peritoneal Signs Back: Present: Paraspinal Tenderness (Parathoracici tenderness/spasm). No: CVA Tenderness, Midline Tenderness Upper Extremity: Present: Normal Inspection. No: Cyanosis, Edema Lower Extremity: Present: Normal Inspection. No: Edema Neurological: Present: GCS=15, CN II-XII Intact, Speech Normal Skin: Present: Warm, Dry, Normal Color. No: Rashes Psychiatric: Present: Alert, Oriented x 3, Normal Insight, Normal Concentration Medical Decision Making ED Course and Treatment: 10/01/17 00:20 Impression: 47 year old female complaining of mid-back pain and neck pain s/p fall 1 week ago. Differential Diagnosis included but are not limited to: muscle spams vs. musculoskeletal pain Plan: -- CT Cervical Spine w/o contrast -- CT Lumbar Spine w/o contrast -- CT Thoracic Spine w/o contrast -- Flexeril -- Motrin -- Reassess and disposition Progress Notes: 10/01/17 01:52 Reviewed radiology, CT Cervical Spine shows: Vertebrae: Intraosseous gas at at C6. Degenerative changes at C5-C6. No acute fracture. Discs/spinal canal/neural foramina: No acute findings. No spinal canal stenosis. Soft tissues: Unremarkable. Thyroid: Heterogeneous nodular thyroid gland . Correlation with thyroid function tests is recommended. Lung apices: Unremarkable. IMPRESSION: There is no acute fracture of cervical spine. CT Thoracic Spine shows: Vertebrae: Unremarkable. No acute fracture. Discs/spinal canal/neural foramina: No acute findings. No spinal canal stenosis. Soft tissues: Unremarkable. Lungs: There is bibasilar atelectasis. Thyroid: Heterogeneous nodular thyroid gland. IMPRESSION: There is no acute fracture of thoracic spine. CT Lumbar Spine shows: Vertebrae: Mild left-sided scoliosis. No acute fracture. Discs/spinal canal/neural foramina: L5-S1 facet arthritis. L5-S1 vacuum degenerative disc disease. No spinal canal stenosis. Soft tissues: Unremarkable. Vasculature: Pelvic phleboliths. Stomach and bowel: Large amount of stool in the colon. Correlation with patient' s clinical history of constipation is recommended. Bladder: Partially distended bladder. IMPRESSION: There is no acute fracture of the lumbar spine. 10/01/17 02:39 On re-evaluation, patient feels better and is in no acute distress. I have discussed the results and plan with the patient, who expresses understanding. Patient in agreement with plan to be discharged home. Patient is stable for discharge. Patient was instructed to follow up with physician or return if symptoms worsen or new concerning symptoms arise. - RAD Interpretation Radiology Orders: 10/01/17 00:22 CERVICAL SPINE W/O CONTRAST [CT] Stat 10/01/17 00:23 THORACIC SPINE W/O CONT [CT] Stat 10/01/17 00:24 LUMBAR SPINE W/O CONTRAST [CT] Stat Banquet Kitchen Supervisor: Radiologist - Medication Orders Current Medication Orders: Discontinued Medications Cyclobenzaprine HCl (Flexeril) 10 mg PO ONCE ONE Stop: 10/01/17 00:26 Last Admin: 10/01/17 00:42 Dose: 10 mg Ibuprofen (Motrin Tab) 600 mg PO STAT STA Stop: 10/01/17 00:27 Last Admin: 10/01/17 00:43 Dose: 600 mg MAR Pain/Vitals Document 10/01/17 00:43 IT (Rec: 10/01/17 00:46 IT [id number]) Pain Reassessment Is This A Pain ReAssessment? No Sleep Is patient sleeping during reassessment? No Presence of Pain Presence of Pain Yes Pain Scale Used Pain Scale Used Numeric - Scribe Statement The provider has reviewed the documentation as recorded by the Rosaibmichelle Mccauley Provider Scribe Attestation: All medical record entries made by the Scribe were at my direction and personally dictated by me. I have reviewed the chart and agree that the record accurately reflects my personal performance of the history, physical exam, medical decision making, and the department course for this patient. I have also personally directed, reviewed, and agree with the discharge instructions and disposition. Disposition/Present on Arrival - Present on Arrival Any Indicators Present on Arrival: No History of DVT/PE: No History of Uncontrolled Diabetes: No Urinary Catheter: No History of Decub. Ulcer: No History Surgical Site Infection Following: None - Disposition Have Diagnosis and Disposition been Completed?: Yes Diagnosis: Muscle strain, Muscle spasm Disposition: HOME/ ROUTINE Disposition Time: 02:39 Patient Plan: Discharge Condition: GOOD Discharge Instructions (ExitCare): Muscle Strain (DC), Muscle Spasms (DC) Additional Instructions: Rest/no strenuous physical activity/take meds as prescribed/follow up with your doctor this week Prescriptions: Cyclobenzaprine [Cyclobenzaprine HCl] 10 mg PO TID PRN #15 tab PRN Reason: Muscle Spasm Ibuprofen [Motrin] 600 mg PO Q8 PRN #12 tab PRN Reason: Pain, Moderate (4-7) Referrals: Caroline Thrasher DO [Primary Care Provider] - Follow up with primary Forms: [employer] (Japanese)
--- NOTE | 2017-10-01 01:20 | CT ---
EXAM: CT Cervical Spine Without Intravenous Contrast CLINICAL HISTORY: 47 years old, female; Pain; Neck pain; Additional info: Injury TECHNIQUE: Axial computed tomography images of the cervical spine without intravenous contrast. All CT scans at this facility use one or more dose reduction techniques, viz.: automated exposure control; ma/kV adjustment per patient size (including targeted exams where dose is matched to indication; i.e. head); or iterative reconstruction technique. 578 images are submitted. Coronal and sagittal reformatted images were created and reviewed. COMPARISON: No relevant prior studies available. FINDINGS: Vertebrae: Intraosseous gas at at C6. Degenerative changes at C5-C6. No acute fracture. Discs/spinal canal/neural foramina: No acute findings. No spinal canal stenosis. Soft tissues: Unremarkable. Thyroid: Heterogeneous nodular thyroid gland . Correlation with thyroid function tests is recommended. Lung apices: Unremarkable. IMPRESSION: There is no acute fracture of cervical spine.
--- NOTE | 2017-10-01 01:38 | CT ---
EXAM: CT Thoracic Spine Without Intravenous Contrast CLINICAL HISTORY: 47 years old, female; Pain; Pain in thoracic spine; Additional info: Injury TECHNIQUE: Axial computed tomography images of the thoracic spine without intravenous contrast. All CT scans at this facility use one or more dose reduction techniques, viz.: automated exposure control; ma/kV adjustment per patient size (including targeted exams where dose is matched to indication; i.e. head); or iterative reconstruction technique. 956 images are submitted.Sagittal , axial and coronal MPR reformatted images are submitted in bone and soft tissue windows. COMPARISON: No relevant prior studies available. FINDINGS: Vertebrae: Unremarkable. No acute fracture. Discs/spinal canal/neural foramina: No acute findings. No spinal canal stenosis. Soft tissues: Unremarkable. Lungs: There is bibasilar atelectasis. Thyroid: Heterogeneous nodular thyroid gland. IMPRESSION: There is no acute fracture of thoracic spine.
--- NOTE | 2017-10-01 01:51 | CT ---
EXAM: CT Lumbar Spine Without Intravenous Contrast CLINICAL HISTORY: 47 years old, female; Pain; Low back pain; Additional info: Injury TECHNIQUE: Axial computed tomography images of the lumbar spine without intravenous contrast. All CT scans at this facility use one or more dose reduction techniques, viz.: automated exposure control; ma/kV adjustment per patient size (including targeted exams where dose is matched to indication; i.e. head); or iterative reconstruction technique. 838 images are submitted.Sagittal , axial and coronal MPR reformatted images are submitted in soft tissue and bone windows. COMPARISON: No relevant prior studies available. FINDINGS: Vertebrae: Mild left-sided scoliosis. No acute fracture. Discs/spinal canal/neural foramina: L5-S1 facet arthritis. L5-S1 vacuum degenerative disc disease. No spinal canal stenosis. Soft tissues: Unremarkable. Vasculature: Pelvic phleboliths. Stomach and bowel: Large amount of stool in the colon. Correlation with patient's clinical history of constipation is recommended. Bladder: Partially distended bladder. IMPRESSION: There is no acute fracture of the lumbar spine.
[2017-10-01 03:13] VITALS: BP 123/84; PULSE 80; RESP 17; TEMP 98.2; O2SAT 98
== END 2017-10-01 03:12 | disposition home or self-care (01) ==
LOC: ED 22:58
DX: M62.838 Other muscle spasm (principal); T14.8XXA Other injury of unspecified body region, initial encounter; W01.0XXA Fall on same level from slipping, tripping and stumbling without subsequent striking against object, initial encounter; Y92.009 Unspecified place in unspecified non-institutional (private) residence as the place of occurrence of the external cause; I10 Essential (primary) hypertension

== ENCOUNTER 2017-10-18 11:24 | Emergency (ER) | payer OTHER ==
[2017-10-18 11:28] VITALS: BMI 20.8
[2017-10-18 11:40] VITALS: TEMP 98.7
--- NOTE | 2017-10-18 12:01 | ED PDOC ---
Arrival/HPI - General Chief Complaint: Weakness/Neurological Deficit Time Seen by Provider: 10/18/17 11:27 Historian: Patient, Partner - History of Present Illness Narrative History of Present Illness (Text): 10/18/17 11:41 47 year old female presents to the Emergency department complaining of a worsening left sided headache, blurry vision, and tingling down left arm that began approximately 45 minutes ago. 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 She called her partner who brought her Advil. By the time he arrived to her, she felt very week, was laying down on a couch, and was unable to properly ambulate so emergency services were called. Patient was given Aspirin x4 in the field. While in the Emergency department, patient is also shaking and hyperventilating. Patient denies any fever, chills, chest pain, nausea, vomiting, diarrhea, urinary symptoms, back pain, neck pain, dizziness, trauma/injury, or any other complaints. Time/Duration: 1 hour Symptom Onset: Sudden Symptom Course: Worsening Context: Work Past Medical History - Provider Review Nursing Documentation Reviewed: Yes - Past History Past History: No Previous - Infectious Disease Hx of Infectious Diseases: None - Tetanus Immunization Tetanus Immunization: Unknown - Past Medical History Past Medical History: No Previous - Cardiac Hx Hypertension: (pt denies htn) - Pulmonary Hx Respiratory Disorders: No - Neurological Hx Neurological Disorder: Yes (headaches) - HEENT Hx HEENT Disorder: Yes (eyeglasses) Other/Comment: tympanoplasty - Renal Hx Renal Disorder: No Hx Pyelonephritis: (pt denies) - Endocrine/Metabolic Hx Hypothyroidism: Yes Other/Comment: partial thyroidectomy 04/2000 - Hematological/Oncological Hx Blood Disorders: No - Integumentary Hx Dermatological Disorder: No - Musculoskeletal/Rheumatological Hx Falls: Yes (passed out and fell in the past) - Gastrointestinal Hx Gastrointestinal Disorders: Yes - Genitourinary/Gynecological Hx Genitourinary Disorders: Yes (fibroids, ovarian cyst) Hx Hematuria: Yes (MICROSCOPIC) Hx Urinary Tract Infection: Yes Other/Comment: dysuria 2013, irregular periods x 1 yr - Psychiatric Hx Psychophysiologic Disorder: No Hx Substance Use: No - Surgical History Other/Comment: fallopian tube removal laparoscopic sx, ovarian cyst removal laparoscopic, tummy tuck breast lift, fibroids, c section - Anesthesia Hx Anesthesia: Yes Hx Anesthesia Reactions: No Hx Malignant Hyperthermia: No - Suicidal Assessment Feels Threatened In Home Enviroment: No Family/Social History - Physician Review Nursing Documentation Reviewed: Yes Family/Social History: Unknown Family HX Smoking Status: Never Smoked Hx Alcohol Use: No Hx Substance Use: No Hx Substance Use Treatment: No Allergies/Home Meds Allergies/Adverse Reactions: Allergies No Known Allergies Allergy (Verified 09/30/17 23:41) Home Medications: Home Meds Medication Instructions Recorded Confirmed Simvastatin 20 mg PO DAILY 02/16/17 10/18/17 Review of Systems - Physician Review All systems were reviewed & negative as marked: Yes - Review of Systems Constitutional: absent: Fevers, Night Sweats Eyes: Vision Changes (blurry vision) Cardiovascular: absent: Chest Pain Gastrointestinal: absent: Diarrhea, Nausea, Vomiting Genitourinary Female: absent: Dysuria Musculoskeletal: absent: Back Pain, Neck Pain Neurological: Headache, Other (tingling down left arm). absent: Dizziness Physical Exam Vital Signs Reviewed: Yes Vital Signs Temp Pulse Resp BP Pulse Ox 10/18/17 16:02 76 18 114/72 99 10/18/17 11:40 98.7 F 74 18 118/83 100 Temperature: Afebrile Blood Pressure: Normal Pulse: Regular Respiratory Rate: Normal Appearance: Positive for: Well-Appearing, Non-Toxic, Comfortable Pain Distress: None Mental Status: Positive for: Alert and Oriented X 3 - Systems Exam Head: Present: Atraumatic, Normocephalic Pupils: Present: PERRL Extroacular Muscles: Present: EOMI Conjunctiva: Present: Normal Mouth: Present: Moist Mucous Membranes Neck: Present: Normal Range of Motion Respiratory/Chest: Present: Clear to Auscultation, Good Air Exchange, Other ( patient is hyperventilating) Cardiovascular: Present: Regular Rate and Rhythm, Normal S1, S2. No: Murmurs Abdomen: Present: Normal Bowel Sounds. No: Tenderness, Distention, Peritoneal Signs Back: Present: Normal Inspection Upper Extremity: Present: Normal Inspection. No: Cyanosis, Edema Lower Extremity: Present: Normal Inspection. No: Edema Neurological: Present: GCS=15, CN II-XII Intact, Speech Normal Skin: Present: Warm, Dry, Normal Color. No: Rashes Psychiatric: Present: Alert, Oriented x 3, Normal Insight, Normal Concentration , Other (patient is shaking and hyperventilating) Medical Decision Making ED Course and Treatment: 10/18/17 12:05 Impression: 47 year old female presents to the Emergency department complaining of headache , blurry vision, and tingling down left arm. Plan: -- CT scan of the head -- Chest xray -- EKG -- Urinalysis, urine test, urine drug screen -- ABG -- Labs -- Reassess and disposition Prior Visits: Notes and results from previous visits were reviewed. Patient was last seen in the emergency department on 03/03/17, was diagnosed with chest pain, and was hospitalized. Progress Notes: 10/18/17 16:14 Patient was able to eat without difficulty but is reticent to get up and walk. The tech was instructed to have the patient sit in the bed upright with her feet on the floor for 5 minutes and then reread the blood pressure. If the reading is appropriate, try to have the patient go home. The patient may be feeling the effects of the Ativan rather than having an actual neurological problem. 10/18/17 16:39 The patient was able to ambulate without difficulty and still feels lightheaded. However, the patient had stable pulses and blood pressure readings both before and after ambulation so the patient will be discharged. - Lab Interpretations Lab Results: 10/18/17 12:00 10/18/17 12:00 Lab Results 10/18/17 12:35: pCO2 28 L, pO2 131.0 H, HCO3 25.1, ABG pH 7.56 H, ABG Total CO2 26.0, ABG O2 Saturation 99.4 H, ABG Base Excess 3.8 H, ABG Potassium 3.7, Glucose 91, Lactate 0.9, FiO2 21.0, Sodium 140.0, Chloride 108.0 H, Arterial Blood Potassium 3.7 10/18/17 12:00: Urine Opiates Screen Negative, Urine Methadone Screen Negative, Ur Barbiturates Screen Negative, Ur Phencyclidine Scrn Negative, Ur Amphetamines Screen Negative, U Benzodiazepines Scrn Negative, U Oth Cocaine Metabols Negative, U Cannabinoids Screen Negative 10/18/17 12:00: Sodium 142, Potassium 3.6, Chloride 103, Carbon Dioxide 27, Anion Gap 16, BUN 14, Creatinine 0.7, Est GFR ( Amer) > 60, Est GFR (Non- Af Amer) > 60, Random Glucose 97, Calcium 10.6 H, Total Bilirubin 0.9, AST 49 H , ALT 31, Alkaline Phosphatase 98, Lactate Dehydrogenase 580, Total Creatine Kinase 477 H, CK-MB (CK-2) 3.1, CK-MB (CK-2) % Cancelled, Troponin I < 0.01, Total Protein 8.9 H, Albumin 5.0 H, Globulin 3.8, Albumin/Globulin Ratio 1.3 10/18/17 12:00: Urine Color Yellow, Urine Appearance Clear, Urine pH 7.5, Ur Specific [place] 1.010, Urine Protein Negative, Urine Glucose (UA) Negative, Urine Ketones Negative, Urine Blood Negative, Urine Nitrate Negative, Urine Bilirubin Negative, Urine Urobilinogen 0.2, Ur Leukocyte Esterase Large H, Urine RBC Negative, Urine WBC 2 - 5, Ur Epithelial Cells 1 - 3, Urine Bacteria Few 10/18/17 12:00: PT 11.5, INR 1.00 10/18/17 12:00: WBC 5.9, RBC 4.82, Hgb 14.2 D, Hct 39.9, MCV 82.8 D, MCH 29.5 , MCHC 35.6, RDW 13.0, Plt Count 290, MPV 10.8, Gran % 39.2 L, Lymph % (Auto) 44.6 H, [place] % (Auto) 8.9 H, Eos % (Auto) 6.3 H, Baso % (Auto) 1.0, Gran # 2.29 , Lymph # (Auto) 2.6, [place] # (Auto) 0.5, Eos # (Auto) 0.4, Baso # (Auto) 0.06 - RAD Interpretation Narrative RAD Interpretations (Text): 10/18/2017 13:12:17 PROCEDURE: CHEST RADIOGRAPH, 1 VIEW FINDINGS: LUNGS: No infiltrate identified bilaterally. PLEURA: No pneumothorax or pleural fluid seen. CARDIOVASCULAR: Normal. OSSEOUS STRUCTURES: No significant abnormalities. VISUALIZED UPPER ABDOMEN: Normal. OTHER FINDINGS: None. IMPRESSION: No interval acute cardiopulmonary disease appreciated. 10/18/2017 13:15:51 PROCEDURE: CT HEAD WITHOUT CONTRAST. FINDINGS: HEMORRHAGE: No intracranial hemorrhage. BRAIN: Normal smith-white matter differentiation and density are appreciated throughout the cerebrum and cerebellum with the brainstem appearing unremarkable as well. There is no mass effect. There is no suspicious extra-axial fluid collection and the midline brain anatomy appears diffusely unremarkable. VENTRICLES: Unremarkable. No hydrocephalus. CALVARIUM: Unremarkable. PARANASAL SINUSES: Unremarkable as visualized. No significant inflammatory changes. MASTOID AIR CELLS: Unremarkable as visualized. No inflammatory changes. OTHER FINDINGS: None. IMPRESSION: Unremarkable unenhanced head CT. No significant interval change greater prior head CT 02/26/2014. Radiology Orders: 10/18/17 11:41 HEAD W/O CONTRAST [CT] Stat CHEST ONE VIEW [RAD] Stat - EKG Interpretation EKG Interpretation (Text): 10/18/17 11:32 EKG: Ordered, reviewed, and independently interpreted the EKG. Rate : 82 BPM Rhythm : NSR Interpretation : No ST-segment elevations or depressions, no T-wave inversions, normal intervals. Interpreted by ED Physician: Yes Type: 12 lead EKG - Medication Orders Current Medication Orders: Discontinued Medications Ceftriaxone Sodium (Rocephin 1 Gram Ivpb) 1 gm in 100 mls @ 200 mls/hr IVPB STAT STA PRN Reason: Protocol Stop: 10/18/17 13:59 Last Admin: 10/18/17 13:50 Dose: 200 mls/hr eMAR Start Stop Document 10/18/17 13:50 RR (Rec: 10/18/17 14:32 RR [id number]) Intravenous Solution Start Date 10/18/17 Start Time 14:32 End Date 10/18/17 End time 15:02 Total Infusion Time 30 Lorazepam (Ativan) 1 mg PO ONCE ONE PRN Reason: Protocol Stop: 10/18/17 11:42 Last Admin: 10/18/17 11:53 Dose: 1 mg - Scribe Statement The provider has reviewed the documentation as recorded by the Rosaibmichelle Campos All medical record entries made by the Bita were at my direction and personally dictated by me. I have reviewed the chart and agree that the record accurately reflects my personal performance of the history, physical exam, medical decision making, and the department course for this patient. I have also personally directed, reviewed, and agree with the discharge instructions and disposition. Disposition/Present on Arrival - Present on Arrival Any Indicators Present on Arrival: No History of DVT/PE: No History of Uncontrolled Diabetes: No Urinary Catheter: No History of Decub. Ulcer: No History Surgical Site Infection Following: None - Disposition Have Diagnosis and Disposition been Completed?: Yes Diagnosis: Headache, Acute hyperventilation syndrome, Chest pain, atypical, UTI (urinary tract infection) Disposition: HOME/ ROUTINE Disposition Time: 17:19 Patient Plan: Discharge Patient Problems: Current Active Problems Problem Status Onset Headache Acute Acute hyperventilation syndrome Acute Chest pain, atypical Acute Condition: GOOD Discharge Instructions (ExitCare): Headache, Adult, Hyperventilation, Chest Pain (ED) Additional Instructions: Eleni- Jacery that you had to go through this today. All of your tests are negative or normal. Please keep all of your appointments and follow up with your doctors. Return to us if any problems. Tj- Dr. Hans Sutton Forms: [employer] (Turkmen)
[2017-10-18 12:06] LABS: BASO # 0.06 K/mm3 (0.0-2.0); EOS # 0.4 (0.0-0.7); EOS % 6.3 % (1.5-5.0); GRAN # 2.29 (1.4-6.5); GRAN % 39.2 % (50.0-68.0); HEMOGLOBIN 14.2 g/dL (12.0-16.0); LYMPH # 2.6 (1.2-3.4); LYMPH % 44.6 % (22.0-35.0); MEAN CELL VOLUME 82.8 fl (80.0-105.0); MEAN CORPUSCULAR HEMOGLOBIN 29.5 pg (25.0-35.0); MEAN CORPUSCULAR HGB CONC 35.6 g/dl (31.0-37.0); MEAN PLATELET VOLUME 10.8 fl (7.0-11.0); MONO # 0.5 (0.1-0.6); MONO % 8.9 % (1.0-6.0); PH,URINE 7.5 (4.7-8.0); RBC 4.82 10^6/uL (3.5-6.1); URINE BILIRUBIN NEGATIVE (NEGATIVE); URINE BLOOD NEGATIVE (NEGATIVE); URINE GLUCOSE (UA) NEGATIVE (NEGATIVE); URINE LEUKOCYTE ESTERASE LARGE Leu/uL (NEGATIVE); URINE PROTEIN NEGATIVE mg/dL (<30 mg/dL); URINE UROBILINOGEN 0.2 E.U./dL (<1 E.U./dL); WHITE BLOOD COUNT 5.9 10^3/ul (4.5-11.0)
[2017-10-18 12:07] LABS: URINE APPEARANCE CLEAR (CLEAR); URINE COLOR YELLOW (YELLOW)
[2017-10-18 12:12] LABS: PROTHROMBIN TIME 11.5 SECONDS (9.4-12.5)
[2017-10-18 12:25] LABS: ALB/GLOB RATIO 1.3 (1.1-1.8); ALT/SGPT 31 U/L (7-56); AST/SGOT 49 U/L (14-36); BLOOD UREA NITROGEN 14 mg/dL (7-21); CALCIUM 10.6 mg/dL (8.4-10.5); GFR AFRICAN-AMERICAN > 60; GFR NON-AFRICAN AMERICAN > 60; URINE BACTERIA FEW (NEG); URINE RBC NEGATIVE /hpf (0-2)
[2017-10-18 12:41] LABS: ARTERIAL BLOOD GAS HCO3 25.1 mmol/L (21-28); ARTERIAL BLOOD GAS O2 SAT 99.4 % (95-98); ARTERIAL BLOOD GAS PCO2 28 mm/Hg (35-45); ARTERIAL BLOOD GAS PH 7.56 (7.35-7.45)
[2017-10-18 12:45] LABS: BARBITURATES, UR NEGATIVE (NEGATIVE); BENZODIAZEPINES, UR NEGATIVE (NEGATIVE); OPIATES, UR NEGATIVE (NEGATIVE); PHENCYCLIDINE, UR NEGATIVE (NEGATIVE)
[2017-10-18 12:50] LABS: TROPONIN I < 0.01 ng/mL
[2017-10-18 13:08] LABS: CK-MB 3.1 ng/mL (0.0-3.6)
--- NOTE | 2017-10-18 13:13 | RAD ---
PROCEDURE: CHEST RADIOGRAPH, 1 VIEW HISTORY: Chest Pain/Headache COMPARISON: Portable chest 03/03/2017. FINDINGS: LUNGS: No infiltrate identified bilaterally. PLEURA: No pneumothorax or pleural fluid seen. CARDIOVASCULAR: Normal. OSSEOUS STRUCTURES: No significant abnormalities. VISUALIZED UPPER ABDOMEN: Normal. OTHER FINDINGS: None. IMPRESSION: No interval acute cardiopulmonary disease appreciated.
--- NOTE | 2017-10-18 13:17 | CT ---
PROCEDURE: CT HEAD WITHOUT CONTRAST. HISTORY: Chest Pain/Headache COMPARISON: Unenhanced head CT 02/26/2014 TECHNIQUE: Axial computed tomography images were obtained through the head/brain without intravenous contrast. Radiation dose: Total exam DLP = 779.28 mGy-cm. This CT exam was performed using one or more of the following dose reduction techniques: Automated exposure control, adjustment of the mA and/or kV according to patient size, and/or use of iterative reconstruction technique. FINDINGS: HEMORRHAGE: No intracranial hemorrhage. BRAIN: Normal smith-white matter differentiation and density are appreciated throughout the cerebrum and cerebellum with the brainstem appearing unremarkable as well. There is no mass effect. There is no suspicious extra-axial fluid collection and the midline brain anatomy appears diffusely unremarkable. VENTRICLES: Unremarkable. No hydrocephalus. CALVARIUM: Unremarkable. PARANASAL SINUSES: Unremarkable as visualized. No significant inflammatory changes. MASTOID AIR CELLS: Unremarkable as visualized. No inflammatory changes. OTHER FINDINGS: None. IMPRESSION: Unremarkable unenhanced head CT. No significant interval change greater prior head CT 02/26/2014.
[2017-10-18] MEDS ORDERED: cefTRIAXone 1 gm 1 GM/100 ML BAG IVPB STA (13:30)
[2017-10-18 18:24] VITALS: O2SAT 100
[2017-10-18 18:43] VITALS: BP 123/86
[2017-10-18 18:48] VITALS: PULSE 81; RESP 18
--- NOTE | 2017-10-18 23:16 | CARD ---
APPROVED REPORT EKG Measurement Heart [id number] <Conclusion> Normal sinus rhythm Normal ECG
== END 2017-10-18 18:48 | disposition home or self-care (01) ==
LOC: ED 11:24
DX: R07.89 Other chest pain (principal); R51 Headache; R06.4 Hyperventilation; N39.0 Urinary tract infection, site not specified
CPT/HCPCS: 70450; 71045; 80053; 80324; 80345; 80346; 80349; 80353; 80358; 80361; 81001; 81025; 82550; 82553; 82803; 83615; 83992; 84484; 85025; 85610; 87086; 93005; 96365; 99285; J0696